=== PATIENT | female | born 1940 | race Asian ===

== ENCOUNTER → 2018-07-21 08:31 | Outpatient (CLI) | payer MEDICARE, SELFPAY | PROVIDERS: Visit Provider Internal Medicine Cardiovascular Disease | DX: R06.02 Shortness of breath (principal) ==

== ENCOUNTER → 2018-07-21 12:28 | Outpatient (CLI) | payer MEDICARE, MEDICAID, SELFPAY ==
--- NOTE | 2018-07-21 | DI.ECHO.S_ITS ---
[facility] +---------+ : : [address] : [place] : : : : [id number] : : : : Phone: [phone]+ Echocardiogram Report + + :Name: VIKRAM WYNN Study Date: 07/21/2018 Height: 62 in : :[facility] Exam Location: [facility] Weight: 176 lb : : Gender: Female BSA: 1.8 m2 : :: 1940 Age: 78 yrs BP: 140/80 mmHg: :Reason For Study: Aortic valve stenosis : :Ordering Physician: Holli Karimi : :[facility] Performed By: Araceli Page : + + Interpretation Summary 1) Normal left ventricular thickness, size, wall motion, and systolic function (EF 65-70%). 2) Normal right ventricular size and function. 3) Mild to moderate aortic stenosis (mean gradient 18mmHg, valve area 1.3cm2, and severity ratio 0.41). 4) Compared to the Echo done 05/12/2016, no significant change. Procedure: A two-dimensional transthoracic echocardiogram with color flow and Doppler was performed. The study quality was technically adequate. Comparison is made with the echocardiogram of 05/12/2016. The patient was in normal sinus rhythm during the exam. Left Ventricle: The left ventricle is normal in size. There is normal left ventricular wall thickness. The ejection fraction is estimated to be 65-70%. Left ventricular systolic function is normal. There are no obvious focal wall motion abnormalities noted but poor endocardial definition reduces the sensitivity for the detection of such. Right Ventricle: The right ventricle is normal in size and function. Atria: Both atria are normal in size. There is no Doppler evidence for an interatrial shunt. Mitral Valve: The mitral valve is normal in structure and function. There is trace mitral regurgitation. Aortic Valve: The aortic valve is not well visualized. The peak aortic velocity is 2.8 m/sec. The peak aortic velocity on the previous exam was 2.7 m/sec. The calculated aortic valve area is 1.3 cm2. The aortic valve mean gradient is 18.1 mmHg. There is mild to moderate aortic stenosis. There is trace aortic regurgitation. Tricuspid Valve: The tricuspid valve is normal in structure and function. There is a trace or physiologic amount of tricuspid regurgitation. Pulmonary artery pressures cannot be estimated because of the lack of a measurable TR jet velocity. Pulmonic Valve: The pulmonic valve is not well visualized. There is trace pulmonic regurgitation. Great Vessels: The aortic root is normal size. The ascending aorta is normal in size. The pulmonary artery is not well visualized, but is probably normal size. The inferior vena cava was not well visualized. Pericardium/ Pleura There is no pericardial effusion. There is no pleural effusion. MMode/2D Measurements & Calculations LVIDd: 4.1 cm LVOT diam: 2.0 cm EPSS: 0.74 cm Ao root diam: 3.5 cm IVSd: 1.1 cm asc Aorta Diam: 3.0 cm LVPWd: 1.0 cm LV frankel. diameter/BSA (cm/m^2): 2.3 LA A2 area: 17.5 cm2 RA long axis: 4.3 cm LA A4 area: 16.5 cm2 RA area: 13.4 cm2 LA length (vol): 5.3 cm RA vol: 35.3 ml LA vol: 46.2 ml RA : 19.5 ml/m2 LA vol index: 25.5 ml/m2 IVC diam: 1.1 cm RVD1 (basal): 3.6 cm TAPSE: 1.7 cm Doppler Measurements & Calculations Ao V2 max: 280.4 cm/sec LVOT Max Erich: 101.8 cm/sec Ao V2 mean: 202.8 cm/sec LV V1 max P.1 mmHg Ao max P.4 mmHg LV V1 VTI: 21.0 cm Ao mean P.1 mmHg CHIN(I,D): 1.3 cm2 Ao V2 VTI: 50.6 cm CHIN(V,D): 1.1 cm2 sev ratio: 0.41 CHIN indexed to BSA (cm^2/m^2): 0.69 MV E max erich: 96.1 cm/sec PA V2 max: 88.8 cm/sec MV A max erich: 124.9 cm/sec PA V2 mean: 60.8 cm/sec MV E/A: 0.77 PA mean P.7 mmHg Med Peak E' Erich: 7.3 cm/sec PA Accel Time: 0.09 sec E/E' med: 13.1 Lat Peak E' Erich: 8.6 cm/sec E/E' lat: 11.2 E/e' average: 12.2 MV P1/2t: 41.9 msec MV P1/2t max erich: 96.1 cm/sec MVA(P1/2t): 5.2 cm2 Reading Physician:05:21 PM
== END ==
PROVIDERS: Visit Provider Internal Medicine Cardiovascular Disease
DX: I35.0 Nonrheumatic aortic (valve) stenosis (principal)
CPT/HCPCS: 93306

== ENCOUNTER → 2018-08-02 08:46 | Outpatient (CLI) | payer MEDICARE, MEDICAID, SELFPAY ==
--- NOTE | 2018-08-04 07:49 | PM.PFT.1 ---
Pulmonary Function Test Referral & Results Date Patient Seen: 08/02/18 Requesting provider: Holli Graham Indication: Dyspnea Results: The spirometry demonstrates an FVC of 1.61 L which is 65% of predicted. The FEV1 was measured at 1.09 L which is 59% of predicted. The FEV1/FVC ratio was 68 which is 91% of predicted. Following the administration of bronchodilator there was only a 39% improvement in FEF 25-75%. Lung volumes show an SVC of 1.1 L which is 72% of predicted. The diffusing capacity was measured at 14.48 which is 67% of predicted. No hemoglobin value was provided, so no correction for potential anemia could be made, if appropriate. The maximum voluntary ventilation was reduced Interpretation: This study demonstrates mild to moderate obstructive lung disease with limited evidence of benefit following bronchodilator administration based on improvement in FEF 25-75 which would indicate small airway flow improvement There is also mild restrictive lung disease present as well as a mild to moderate reduction in diffusing capacity Altogether this is consistent with a diagnosis of COPD Clinical correlation suggested
== END ==
PROVIDERS: PCP Nurse Practitioner; Visit Provider Internal Medicine Cardiovascular Disease
DX: R06.00 Dyspnea, unspecified (principal)
CPT/HCPCS: 94010; 94060; 94726; 94729